=== PATIENT | female | born 1945 | race Caucasian/White ===

== ENCOUNTER 2018-12-18 22:04 | Observation (INO) | payer BC, MEDICARE ==
[2018-12-18] MEDS ORDERED: Nitroglycerin 0.4 MG TAB 1 EACH ONE (22:32)
[2018-12-18] MEDS ORDERED: Aspirin 325 MG TAB ONE (22:32)
--- NOTE | 2018-12-18 23:16 | RAD ---
PORTABLE CHEST: HISTORY: Abnormal EKG. FINDINGS: Heart size and mediastinum are within normal limits for the portable technique. Lungs are clear of a ny focal infiltrative process. IMPRESSION: No active intrathoracic disease. POS: [facility]
[2018-12-18 23:22] LABS: #Basophils 0.1 thou/uL (0.0-0.2); #Lymphocytes 2.6 thou/uL (1.20-3.40); #Monocytes 0.6 thou/uL (0.11-0.59); #Neutrophils 4.2 thou/uL (1.40-6.50); %Basophils 1.3 % (0.0-1.0); %Eosinophils 0.6 % (0.0-10.0); %Lymphocytes 34.9 % (21.0-51.0); %Neutrophils 55.3 % (42.0-75.0); Hemoglobin 12.4 g/dL (12.0-16.0); Mean Corpuscular HGB CONC 32.2 g/dL (32.0-36.0); Mean Corpuscular Hemoglobin 27.6 pg (27.0-31.0); Mean Corpuscular Volume 85.7 fL (78.0-98.0); Mean Platelet Volume 8.6 fL (7.4-10.4); Platelet Count 210 thou/uL (130-400); RBC Distribution Width 14.2 % (11.5-14.5); Red Blood Cell (RBC) Count 4.47 mill/uL (4.20-5.40); White Blood Cell (WBC) Count 7.5 thou/uL (4.8-10.8)
[2018-12-18 23:50] LABS: ALT (SGPT) 13 U/L (8-55); AST (SGOT) 13 U/L (5-34); Albumin 4.1 g/dL (3.4-4.8); Alkaline Phosphatase 69 U/L (40-150); Anion Gap 14 mmol/L (10-20); BUN (Urea Nitrogen) 14 mg/dL (9.8-20.1); Bilirubin, Total 0.5 mg/dL (0.2-1.2); Calc. Creatinine Clearance 0 mL/min (70-130); Calcium 9.7 mg/dL (7.8-10.44); Carbon Dioxide 24 mmol/L (23-31); Chloride 106 mmol/L (98-107); Estimated GFR-MDRD 61; Globulin 2.8 g/dL (2.4-3.5); Glucose 96 mg/dL (83-110); Lipase 11 U/L (8-78); Potassium 3.4 mmol/L (3.5-5.1); Protein, Total 6.9 g/dL (6.0-8.3); Sodium 141 mmol/L (136-145)
[2018-12-19 02:52] LABS: Troponin I Less than 0.010 ng/mL (< 0.028)
[2018-12-19 06:18] LABS: Troponin I Less than 0.010 ng/mL (< 0.028)
[2018-12-19] MEDS ORDERED: ADENOSINE 60 MG/20 ML VIAL ONE (09:10)
[2018-12-19] MEDS ORDERED: Nitroglycerin 0.4 MG TAB (25 Tab Bottle) PO PRN (10:20)
[2018-12-19] MEDS ORDERED: Acetaminophen 325 MG TAB PO PRN (10:20)
[2018-12-19 11:30] LABS: Cardiac Risk 4.4 (Less than 4.5)
[2018-12-19] MEDS ORDERED: Albuterol Sulfate 2.5 mg/3 ml Neb NEB SCH (13:00)
[2018-12-19] MEDS ORDERED: Benzonatate 100 MG CAP PO SCH (15:00)
--- NOTE | 2018-12-19 15:30 | NM ---
NUCLEAR MEDICINE CARDIAC SPECT WITH EJECTION FRACTION AND WALL MOTION: HISTORY: Chest pain. COMPARISON: 07/17/17. TECHNIQUE: The patient was administered 10.5 mCi of technetium-99m sestamibi for rest imaging and 27 mCi of tech netium-99m sestamibi for stress imaging. Cardiac gating is performed. FINDINGS: On the stress attenuation correction images, there is homogeneous distribution of the radiotracer. Th ere are no areas of reversibility. There are no fixed defects. TID is 1.07. End-diastolic volume is 104 ml. End-systolic volume is 38 mL. CARDIAC GATING: Normal motion and thickening. 63% ejection fraction. IMPRESSION: 1. No reversibility or fixed defect. 2. 63% ejection fraction. POS: [facility]
[2018-12-19] MEDS ORDERED: Potassium Chloride 20 MEQ TAB PO SCH (17:00)
--- NOTE | 2018-12-19 17:44 | HP ---
REASON FOR ADMISSION: Chest pain. HISTORY OF PRESENTING ILLNESS: The patient gives history of having chest congestion and had gone to [facility] on Tuesday. She had a chest x- ray done and was given doxycycline along with albuterol inhaler. The patient also said that she was wheezing then. Yesterday, she left work with shortness of breath. She also had chest congestion, so she took a tablet of sublingual nitroglycerin. She got better, but felt lightheaded after that. She went to [facility] and tried to get her blood pressure check there. It was registering 161 /91. She tried this multiple times and it was high. She went home after all this and was still feeling dizzy, hence came to emergency room to check it out. Last stress test was a year back. Does not have fever. No complaints of palpitations or PND. The patient has some nasal congestion and postnasal drip as well. PAST MEDICAL AND SURGICAL HISTORY: History of angina with no prior interventions done. She has had a prior stress test done a year back, which was normal per patient. She sees Dr. Castillo for the same. She has seen him 2 months back. Hypothyroidism, dyslipidemia, hernia repair, partial thyroidectomy, knee meniscus repair, foot surgery, hysterectomy, cholecystectomy. CURRENT MEDICATIONS: The patient is on; 1. Doxycycline 100 mg twice daily. 2. Tessalon 100 mg twice daily. 3. Simvastatin 40 mg p.o. at bedtime. 4. Imdur 30 mg p.o. daily. 5. Ranexa 500 mg p.o. twice daily. 6. Risedronate 150 mg once a month. 7. Vitamin D3 2000 units daily. 8. Aspirin 81 mg daily. 9. Fenofibrate 160 mg p.o. daily. 10. Lasix 40 mg daily. 11. Levothyroxine 100 mcg p.o. daily. 12. Protonix 40 mg p.o. daily. 13. Simvastatin 40 mg p.o. at bedtime. ALLERGIES: ALLERGIC TO CODEINE. PERSONAL HISTORY: Does not abuse alcohol or drugs. No history of smoking. She does teaching, although, she is retired. FAMILY HISTORY: Mother at the age of 89 years. She has had history of coronary artery disease. Father had coronary artery disease as well and of lung cancer and its complications at the age of 83 years. CODE STATUS: Full. REVIEW OF SYSTEMS: CONSTITUTIONAL: Negative for weight loss or gain, ability to conduct usual activities. SKIN: Negative for rash, itching. EYES: Negative for double vision, pain. ENT/MOUTH: Negative for nose bleeding, neck stiffness, pain, tenderness. CARDIOVASCULAR: Negative for palpitations, dyspnea on exertion, orthopnea. RESPIRATORY: Negative for shortness of breath, wheezing, cough, hemoptysis, fever or night sweats. GASTROINTESTINAL: Negative for poor appetite, abdominal pain, heartburn, nausea , vomiting, constipation, or diarrhea. GENITOURINARY: Negative for urgency, frequency, dysuria, nocturia. MUSCULOSKELETAL: Negative for pain, swelling. NEUROLOGIC/PSYCHIATRIC: Negative for anxiety, depression. ALLERGY/IMMUNOLOGIC: Negative for skin rash, bleeding tendency. PHYSICAL EXAMINATION: GENERAL: The patient is a 73-year-old female, who is currently chest pain free. VITAL SIGNS: Blood pressure 140/66, pulse 56 per minute, respiratory rate 18 per minute, temperature 98.4 degrees Fahrenheit, and saturating 95% on room air. NECK: Supple. No elevated JVD. HEENT: Eyes; extraocular muscles intact. Pupils reacting to light. Oral cavity, mucous membranes are moist. Mild congestion in the posterior pharynx. No exudates. CARDIOVASCULAR SYSTEM: S1 and S2 heard. Regular rhythm. RESPIRATORY SYSTEM: Air entry 1+ bilateral. Scattered rhonchi plus no rales or wheezes. ABDOMEN: Soft. Bowel sounds heard. No tenderness, rigidity, or guarding. EXTREMITIES: No peripheral edema or calf tenderness. VASCULAR SYSTEM: Peripheral pulses 1+ bilateral. No ischemic ulcerations or gangrene. CENTRAL NERVOUS SYSTEM: No gross focal deficits noted. The patient is alert, awake, and oriented well. PSYCHIATRIC: The patient's mood is euthymic. No hallucinations or delusions. LABORATORY DATA: Troponin x3 is negative. Chest x-ray done shows no acute cardiopulmonary disease. Nuclear stress test done showed no reversibility of fixed defect. Ejection fraction was 63%. TID was 1.07. End-diastolic volume 104 mL. Total cholesterol 248, triglycerides 206, LDL 151, HDL 56, lipase was 11. Albumin 4.1. Liver enzymes within normal limits. BUN 14, creatinine 0.9, potassium was 3.4. White count of 7, H and H 12 and 38, platelet count 210, MCV is 85 with 55 % neutrophils. CLINICAL IMPRESSION AND PLAN: The patient will be shortly discharged home from the ER. She has had a complete workup done to rule out acute coronary syndrome. Three sets of troponin were negative. She has had EKG changes with T inversion seen in the lateral leads. The patient was in sinus rhythm at 83 beats per minute with frequent PVCs. The patient started taking Lasix from last 1 week or so, but has not been using potassium supplementation. She was given 40 mEq of potassium twice daily here in the ER and the patient needs to continue 20 mEq p.o. daily when she is taking Lasix. She also needs to continue her doxycycline along with Tessalon and Mucinex. The patient has a followup appointment with Dr. Castillo next month. Her TID is little high on the stress test, but there is no reversible ischemia and normal wall motion. The patient will follow up with Dr. Castillo to discuss the same. She is currently chest pain free. She is otherwise hemodynamically stable and needs to continue all her home medication as before This is a same day admit-discharge under observation. Job ID: [id number] [facility]
[2018-12-19] MEDS ORDERED: Atorvastatin Calcium 20 MG TAB PO SCH (21:00)
[2018-12-19] MEDS ORDERED: guaiFENesin ER 600 MG TAB PO SCH (21:00)
[2018-12-19] MEDS ORDERED: Doxycycline 100 MG CAP PO SCH (21:00)
[2018-12-19] MEDS ORDERED: Famotidine 20 MG TAB PO SCH (21:00)
[2018-12-20] MEDS ORDERED: Levothyroxine Sodium 100 MCG TAB PO SCH (06:00)
[2018-12-20] MEDS ORDERED: Aspirin 325 MG TAB PO SCH (09:00)
[2018-12-20] MEDS ORDERED: Fenofibrate Nanocrystallized 145 MG TAB PO SCH (09:00)
[2018-12-20] MEDS ORDERED: Enoxaparin Sodium 40 MG/0.4 ML SYRINGE SC SCH (09:00)
--- NOTE | 2019-01-11 13:56 | EKG ---
Test Reason : Blood Pressure : / mmHG Vent. Rate : 083 BPM Atrial Rate : 083 BPM P-R Int : 132 ms QRS Dur : 084 ms QT Int : 378 ms P-R-T Axes : 048 -21 145 degrees QTc Int : 444 ms Sinus rhythm with frequent Premature ventricular complexes Biatrial enlargement Left ventricular hypertrophy Anterior and lateral lead T wave inversion Abnormal ECG No previous ECGs available Confirmed by NELDA ELKINS ([id number]), food expeditor AMINA AYALA ([id number] on 01/11/2019 1:56:25 PM Referred By: Confirmed By:NELDA ELKINS
== END 2018-12-19 16:13 | disposition home or self-care (01) ==
LOC: ERS 22:04 → ERHOLD 12-19 00:37
PROVIDERS: ADMIT Family Medicine; ATTEND Family Medicine
DX: R07.9 Chest pain, unspecified (principal); E78.5 Hyperlipidemia, unspecified; E89.0 Postprocedural hypothyroidism; Z79.82 Long term (current) use of aspirin; Z79.83 Long term (current) use of bisphosphonates; Z79.899 Other long term (current) drug therapy; Z88.5 Allergy status to narcotic agent
CPT/HCPCS: 36415; 71045; 78452; 80053; 80061; 83690; 84484; 85025; 93005; 93017; 94760; A9500; G0378; J0153